=== PATIENT | female | born 1990 | race Caucasian/White ===

== ENCOUNTER 2020-01-18 07:32 | Day surgery (SDC) | payer BC ==
[~2020-01-18 07:32] MED LIST: Lactated Ringers 1,000 ML IV SCH; Sodium Chloride 0.9% 10 ML Syringe FLUSH PRN
[2020-01-18] MEDS ORDERED: Lactated Ringers 1,000 ML IV ONE (07:33)
[2020-01-18] MEDS ORDERED: Rocuronium 50 MG/5 ML Vial IV ONE (07:33)
[2020-01-18] MEDS ORDERED: Dexamethasone 4 MG/ML 5 ML MDV IVPUSH ONE (07:33)
[2020-01-18] MEDS ORDERED: Ondansetron 4 MG/2 ML SDV IVPUSH ONE (07:33)
[2020-01-18] MEDS ORDERED: fentaNYL 100 MCG/2 ML SDV IV ONE ×2 (07:33→10:47)
[2020-01-18] MEDS ORDERED: Neostigmine Methylsulfate 10 MG/10 ML MDV IVPUSH ONE (07:33)
[2020-01-18] MEDS ORDERED: Lidocaine 2% 5 ML SDV INJECT ONE (07:33)
[2020-01-18] MEDS ORDERED: Glycopyrrolate 0.2 MG/ML 5 ML MDV IV ONE (07:33)
[2020-01-18] MEDS ORDERED: Albuterol 8 GM Inhaler INH ONE (07:33)
[2020-01-18] MEDS ORDERED: Midazolam 1 MG/ML 2 ML SDV IV ONE (07:33)
[2020-01-18] MEDS ORDERED: Propofol 200 MG/20 ML SDV IV ONE (07:33)
[2020-01-18] MEDS ORDERED: Ketorolac 30 MG/ML SDV IVPUSH ONE (07:33)
[2020-01-18] MEDS ORDERED: ceFAZolin 2 GM in Premix Bag 1 BAG IV ONE (08:45)
--- NOTE | 2020-01-18 08:46 | PCM.PN ---
- General Info Date of Service: 01/18/20 - Review of Systems Systems Review Comment:: 29-year-old female with severely symptomatic recurrent ventral incisional hernia here for repair with mesh. The patient is medically stable to proceed today. There is been no significant changes in her health status since her recent evaluations. The site of the hernia is again examined and confirmed with the patient. The site is marked. The procedures reviewed with her along with the expected postoperative course. Risk of recurrence again discussed. She agrees to proceed. - Patient Data Vitals - Most Recent: Last Vital Signs Temp 98.4 F 01/18/20 08:28 Pulse Resp BP 114/56 L 01/18/20 08:28 Pulse Ox 96 01/18/20 08:28 Weight - Most Recent: 181 lb 10.5 oz Lab Results Last 24 Hours: Laboratory Results - last 24 hr 01/18/20 Range/Units 07:30 Urine HCG, Qual Negative (NEGATIVE) Med Orders - Current: Current Medications Lactated Ringer's (Ringers, Lactated) 1,000 mls @ 125 mls/hr IV ASDIRECTED LISA Cefazolin Sodium/Dextrose 2 gm (/ Premix) 50 mls @ 100 mls/hr IV ONETIME ONE Stop: 01/18/20 09:14 Sodium Chloride (Saline Flush) 10 ml FLUSH ASDIRECTED PRN PRN Reason: Keep Vein Open Sepsis Event Note - Focused Exam Vital Signs: Vital Signs Temp BP Pulse Ox 01/18/20 08:28 98.4 F 114/56 L 96 Date Exam was Performed: 01/18/20 Time Exam was Performed: 08:44 - Problem List Review Problem List Initiated/Reviewed/Updated: Yes - My Orders Last 24 Hours: My Active Orders 01/17/20 13:09 Resuscitation Status Routine 01/17/20 Dinner Nothing Per Oral Diet [DIET] 01/18/20 07:30 Patient Status [ADT] Routine Patient to Empty Bladder [RC] ASDIRECTED RT Incentive Spirometry [RC] ASDIRECTED Verify Patient Consent Obtain [RC] ASDIRECTED Lactated Ringers [Ringers, Lactated] 1,000 ml IV ASDIRECTED Sodium Chloride 0.9% [Saline Flush] 10 ml FLUSH ASDIRECTED PRN Peripheral IV Insertion Adult [OM.PC] Routine Sequential Compression Device [OM.PC] Routine 01/18/20 08:45 ceFAZolin [Ancef] 2 gm Premix Bag 1 bag IV ONETIME - Assessment Assessment:: Recurrent ventral incisional hernia - Plan Plan:: Repair of ventral incisional hernia with mesh
[2020-01-18] MEDS ORDERED: ceFAZolin 1 GM Vial ONE (09:36)
[2020-01-18] MEDS ORDERED: Albuterol/Ipratropium 3.0-0.5 MG/3 ML Neb Soln NEB ONE (10:49)
--- NOTE | 2020-01-18 10:50 | PCM.OPNOTE ---
- General Post-Op/Procedure Note Date of Surgery/Procedure: 01/18/20 Operative Procedure(s): Repair of recurrent ventral incisional hernia with mesh Findings: Lower midline fascial defect with omentum adherent to the hernia sac. Surrounding fascia appears satisfactory. Mesh used in previously performed laparoscopic hernia repair adherent to the right abdominal wall with omental adhesions to it. Surrounding fascia satisfactory quality with no other defects noted. Pre Op Diagnosis: Recurrent ventral incisional hernia Post-Op Diagnosis: Same Anesthesia Technique: General ET Tube Primary Surgeon: Celio Leiva Manager Psychology: Alfonzo Coulter Reason Manager Psychology Was Necessary: Assist with exposure and dissection and to improve efficiency Pathology: Hernia sac EBL in mLs: 50 Complications: None Condition: Good
[2020-01-18] MEDS ORDERED: Ondansetron 4 MG/2 ML SDV IVPUSH PRN (10:52)
[2020-01-18] MEDS ORDERED: Acetaminophen/HYDROcodone 325-5 MG Tab PO PRN ×2 (10:52)
[2020-01-18] MEDS ORDERED: Morphine 2 MG/ML Syringe IVPUSH PRN (10:52)
[2020-01-18] MEDS ORDERED: Lactated Ringers 1,000 ML IV SCH (11:00)
[2020-01-18] MEDS ORDERED: Albuterol/Ipratropium 3.0-0.5 MG/3 ML Neb Soln NEB SCH (11:15)
--- NOTE | 2020-01-18 12:47 | OR ---
DATE OF OPERATION: 01/18/2020 SURGEON: Celio Leiva MD SET UP WORKER: Alfonzo Coulter MD; facilities maintenance assistant necessary to assist with dissection and exposure and to improve efficiency. Additional facilities maintenance assistant is Nallely Quach. PREOPERATIVE DIAGNOSIS: Recurrent ventral incisional hernia. POSTOPERATIVE DIAGNOSIS: Recurrent ventral incisional hernia. OPERATION PERFORMED: Repair of recurrent ventral incisional hernia with primary fascial closure and onlay mesh reinforcement. INDICATIONS FOR SURGERY: This is a 29-year-old female who has had multiple sections developed a lower abdominal ventral incisional hernia. This was repaired with laparoscopic repair previously, but soon after this repair was performed, the patient noted recurring bulge in this region. She now notes the bulge is large and painful, and even prevents her from doing her regular activities including her work. She comes now for hernia repair. FINDINGS: In the lower abdomen extending from the midline to the right side is a fascial defect approximately 4 x 3 inches in size. The previously placed mesh is noted intra-abdominally to the right side of the fascial defect. The area with mesh reinforcement and sycuan fascia all appear of good quality with solid tissue, and I do not identify any additional hernia defects in this area. There are fatty tissue adhesions to the hernia sac as well as to the previously placed mesh, but no bowel involvement is noted. PROCEDURE IN DETAIL: The patient was taken to the operating room. She was given general endotracheal anesthesia. The abdomen was sterilely prepped and draped. A vertical midline lower abdominal incision was made. This was carried down to the underlying fascia and the hernia sac was identified. Carefully, the hernia sac was from the surrounding subcutaneous tissue down to the level of the fascia, and the subcutaneous tissue was cleared from the fascial edge circumferentially. The hernia sac is thereby fully exposed and it is opened. Findings are as described above. The hernia sac is excised with cautery at the fascia level and that will be submitted for pathology. Adhesions of the omentum and fatty tissue to the hernia sac, fascial edge, and the previously placed mesh were all gradually taken down with careful sharp and cautery dissection until the abdominal wall in this area is completely free of adhesions. Inspection identified no other hernia defects. Fascial edges were reapproximated in the midline with interrupted #1 Prolene suture in a Smead- Brown suturing technique. The entire fascial defect was closed in this manner. Incorporated in these sutures on the anterior surface of the fascia is a piece of polypropylene mesh. The edges of the mesh are trimmed and then the lateral edges of the mesh were then secured down to the underlying fascia with a running 2-0 Vicryl. This created a complete and secure closure of the fascial defect with no sign of any complication. The wound was irrigated with Ancef and saline solution, which had been used to soak the mesh prior to its placement. The subcutaneous tissue was approximated and tacked down to the underlying mesh with interrupted 3-0 Vicryl and the skin was closed with skin vinayak. Sterile dressing was placed. The patient was then awakened, extubated, and taken from the operating room in satisfactory condition. ESTIMATED BLOOD LOSS: 50 mL. COMPLICATIONS: None. PROGNOSIS: Good. /[id number] FILEMON/MARCIE RICHARDS
--- NOTE | 2020-01-18 16:46 | PCM.SURGPN ---
- General Info Date of Service: 01/18/20 Date of Surgery/Procedure: 01/18/20 POD#: 0 Post-Op Diagnosis: Recurrent Ventral Incisional Hernia Functional Status: Reports: Pain Controlled - Review of Systems Pulmonary: Reports: No Symptoms Gastrointestinal: Reports: Other (tolerating liquids well) Genitourinary: Reports: Other (voiding well) - Patient Data Vitals - Most Recent: Last Vital Signs Temp 98 F 01/18/20 13:30 Pulse 78 01/18/20 13:30 Resp 16 01/18/20 13:30 BP 114/71 01/18/20 13:30 Pulse Ox 98 01/18/20 13:30 Weight - Most Recent: 181 lb 10.5 oz I&O - Last 24 Hours: Intake & Output 01/18/20 01/18/20 01/18/20 06:59 14:59 22:59 Intake Total 240 240 Output Total 300 Balance 240 -60 Lab Results Last 24 Hrs: Laboratory Results - last 24 hr 01/18/20 Range/Units 07:30 Urine HCG, Qual Negative (NEGATIVE) Med Orders - Current: Current Medications Hydrocodone Bitart/Acetaminophen ([place] 325-5 Mg) 1 tab PO Q4H PRN PRN Reason: Pain (mild 1-3) Hydrocodone Bitart/Acetaminophen ([place] 325-5 Mg) 2 tab PO Q4H PRN PRN Reason: Pain (moderate 4-6) Albuterol/Ipratropium (Duoneb 3.0-0.5 Mg/3 Ml) 3 ml NEB Q6H LISA Last Admin: 01/18/20 12:06 Dose: Not Given Lactated Ringer's (Ringers, Lactated) 1,000 mls @ 100 mls/hr IV ASDIRECTED LISA Morphine Sulfate (Morphine) 2 mg IVPUSH Q1H PRN PRN Reason: Pain (severe 7-10) Ondansetron HCl (Zofran) 4 mg IVPUSH Q6H PRN PRN Reason: Nausea/Vomiting Sodium Chloride (Saline Flush) 10 ml FLUSH ASDIRECTED PRN PRN Reason: Keep Vein Open Discontinued Medications Albuterol/Ipratropium (Duoneb 3.0-0.5 Mg/3 Ml) 3 ml NEB ONETIME ONE Stop: 01/18/20 10:50 Last Admin: 01/18/20 10:54 Dose: 3 ml Cefazolin Sodium (Ancef) 1 gm .XX .STK-MED ONE Stop: 01/18/20 09:37 Last Admin: 01/18/20 09:36 Dose: 1 gm Lactated Ringer's (Ringers, Lactated) 1,000 mls @ 125 mls/hr IV ASDIRECTED LISA Last Admin: 01/18/20 08:30 Dose: 125 mls/hr Cefazolin Sodium/Dextrose 2 gm (/ Premix) 50 mls @ 100 mls/hr IV ONETIME ONE Stop: 01/18/20 09:14 Last Admin: 01/18/20 08:50 Dose: 100 mls/hr - Exam Wound/Incisions: Dressing Dry and Intact General: Alert, Oriented Lungs: Normal Respiratory Effort Sepsis Event Note - Focused Exam Vital Signs: Vital Signs Temp Temp Pulse Resp BP Pulse Ox Pulse Ox 01/18/20 13:30 98 F 78 16 114/71 98 01/18/20 13:00 78 16 120/73 97 01/18/20 12:30 77 18 112/64 98 01/18/20 12:15 73 16 117/65 98 01/18/20 12:00 81 16 115/63 98 01/18/20 11:45 98 F 75 16 115/69 96 95 01/18/20 11:30 82 19 124/63 98 01/18/20 11:25 68 14 111/62 98 01/18/20 11:20 87 17 128/59 L 95 01/18/20 11:15 68 13 129/74 99 01/18/20 11:10 80 17 130/62 95 01/18/20 11:05 88 25 H 133/72 97 01/18/20 11:00 92 22 H 126/54 L 98 01/18/20 10:55 86 25 H 134/72 97 01/18/20 10:50 100 20 123/63 91 L 01/18/20 10:45 96.9 F 100 24 H 139/68 92 L 01/18/20 08:28 98.4 F 114/56 L 96 Date Exam was Performed: 01/18/20 Time Exam was Performed: 16:45 - Problem List Review Problem List Initiated/Reviewed/Updated: Yes - My Orders Last 24 Hours: Active Orders 24 hr Category Date Time Status Patient Status [ADT] Routine ADT 01/18/20 10:52 Active Ambulate [RC] ASDIRECTED Care 01/18/20 10:52 Active Antiembolic Devices [RC] .Routine Care 01/18/20 10:55 Active Intake and Output [RC] QSHIFT Care 01/18/20 10:53 Active Oxygen Therapy [RC] PRN Care 01/18/20 10:52 Active RT Aerosol Therapy [RC] ASDIRECTED Care 01/18/20 10:49 Active RT Aerosol Therapy [RC] ASDIRECTED Care 01/18/20 11:14 Active RT Incentive Spirometry [RC] Q1HWA Care 01/18/20 10:52 Active Ready for Discharge [RC] PER UNIT ROUTINE Care 01/18/20 16:44 Ordered VTE/DVT Education [RC] Click to Edit Care 01/18/20 10:55 Active Vital Signs [RC] PER UNIT ROUTINE Care 01/18/20 10:52 Active Full Liquid Diet [DIET] Diet 01/18/20 Lunch Ordered Acetaminophen/HYDROcodone [[place]ova 325-5 MG] Med 01/18/20 10:52 Active 1 tab PO Q4H PRN Acetaminophen/HYDROcodone [[place] 325-5 MG] Med 01/18/20 10:52 Active 2 tab PO Q4H PRN Albuterol/Ipratropium [DuoNeb 3.0-0.5 MG/3 ML] Med 01/18/20 11:15 Active 3 ml NEB Q6H Lactated Ringers [Ringers, Lactated] 1,000 ml Med 01/18/20 11:00 Active IV ASDIRECTED Morphine Med 01/18/20 10:52 Active 2 mg IVPUSH Q1H PRN Ondansetron [Zofran] Med 01/18/20 10:52 Active 4 mg IVPUSH Q6H PRN Sodium Chloride 0.9% [Saline Flush] Med 01/18/20 07:30 Active 10 ml FLUSH ASDIRECTED PRN DVT/VTE Prophylaxis Reflex [OM.PC] Per Unit Routine Oth 01/18/20 10:55 Ordered Peripheral IV Insertion Adult [OM.PC] Routine Oth 01/18/20 07:30 Ordered Sequential Compression Device [OM.PC] Routine Oth 01/18/20 07:30 Ordered Medication Orders Hydrocodone Bitart/Acetaminophen ([place] 325-5 Mg) 1 tab PO Q4H PRN PRN Reason: Pain (mild 1-3) Hydrocodone Bitart/Acetaminophen ([place] 325-5 Mg) 2 tab PO Q4H PRN PRN Reason: Pain (moderate 4-6) Albuterol/Ipratropium (Duoneb 3.0-0.5 Mg/3 Ml) 3 ml NEB Q6H LISA Last Admin: 01/18/20 12:06 Dose: Lactated Ringer's (Ringers, Lactated) 1,000 mls @ 100 mls/hr IV ASDIRECTED LISA Morphine Sulfate (Morphine) 2 mg IVPUSH Q1H PRN PRN Reason: Pain (severe 7-10) Ondansetron HCl (Zofran) 4 mg IVPUSH Q6H PRN PRN Reason: Nausea/Vomiting Sodium Chloride (Saline Flush) 10 ml FLUSH ASDIRECTED PRN PRN Reason: Keep Vein Open - Assessment Assessment (Free Text/Narrative):: Doing well after hernia repair - Plan Plan (Free Text/Narrative):: Discharge
== END 2020-01-18 17:05 | disposition home or self-care (01) ==
LOC: FB.SDS 07:32 → FB.MS 11:45 → FB.SDS 17:05
PROVIDERS: ATTEND Surgery
DX: K43.2 Incisional hernia without obstruction or gangrene (principal); K66.0 Peritoneal adhesions (postprocedural) (postinfection); K21.9 Gastro-esophageal reflux disease without esophagitis; F17.210 Nicotine dependence, cigarettes, uncomplicated; Z98.890 Other specified postprocedural states
CPT/HCPCS: 81025; 88302; 94150; A9270-GY; C1781; J0690; J1100; J1885; J2001; J2250; J2405; J2704; J2710; J3010; J3490; J7120; J7620-GY